=== PATIENT | female | born 1990 | race Caucasian/White ===

== ENCOUNTER 2020-11-07 20:29 | Emergency (ER) | payer BC, SELFPAY ==
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
[2020-11-07 20:52] VITALS: BP 147/84; PULSE 120; RESP 17; TEMP 36.7; O2SAT 99
== END 2020-11-07 21:51 | disposition home or self-care (01) ==
PROVIDERS: Emergency Provider Emergency Medicine
DX: S05.11XA Contusion of eyeball and orbital tissues, right eye, initial encounter (principal); F17.210 Nicotine dependence, cigarettes, uncomplicated; Y04.2XXA Assault by strike against or bumped into by another person, initial encounter
CPT/HCPCS: 99282